=== PATIENT | female | born 1975 | race Hispanic/Latino ===

== ENCOUNTER 2017-10-10 20:48 | Emergency (ER) | payer BC ==
[2017-10-10 20:56] VITALS: PULSE 98; RESP 18
[2017-10-10] MEDS ORDERED: Sodium Chloride 0.9% 1,000 ML IV STA (21:08)
[2017-10-10] MEDS ORDERED: Morphine 4 mg/ml ISec IVP STA (21:08)
[2017-10-10 21:14] VITALS: BMI 27.4
--- NOTE | 2017-10-10 21:46 | ED PDOC ---
Arrival/HPI - General Chief Complaint: Female Genitourinary Time Seen by Provider: 10/10/17 20:53 Historian: Patient - History of Present Illness Narrative History of Present Illness (Text): 10/10/17 21:43 42yr old female presents today with worsening lower abdominal pain. pt states she is currently menstrating and through out the day today the pain has been gradually increasing. Pt states about 1 hour prior to arrival the pain became severe. pt states she took vicodin without improvement. pt denies back pain. pt states the pain is 10/10 sharp, intermittent, located to the suprapubic region and is non radiating. pt denies cp or sob. denies dysuria, or frequency. pt states she feels urinary fullness after urinating. no fever/chills. no other complaints. Past Medical History - Provider Review Nursing Documentation Reviewed: Yes - Travel History Have you recently traveled outside [place] w/in the past 3 mons?: No - Tetanus Immunization Tetanus Immunization: Unknown - Psychiatric Hx Psychophysiologic Disorder: No Hx Substance Use: No - Surgical History Hx Section: Yes - Anesthesia Hx Anesthesia: No Family/Social History - Physician Review Nursing Documentation Reviewed: Yes Family/Social History: Unknown Family HX Smoking Status: Never Smoked Hx Alcohol Use: No Hx Substance Use: No Allergies/Home Meds Allergies/Adverse Reactions: Allergies No Known Allergies Allergy (Verified 10/10/17 21:00) Review of Systems - Review of Systems Constitutional: absent: Fatigue, Fevers Respiratory: absent: SOB, Cough Cardiovascular: absent: Chest Pain, Palpitations Gastrointestinal: Abdominal Pain. absent: Constipation, Diarrhea, Nausea, Vomiting Genitourinary Female: Vaginal Bleeding (currently menstrating), Other (urinary "fullness"). absent: Dysuria, Frequency, Hematuria Skin: absent: Rash, Pruritis Neurological: absent: Headache, Dizziness Psychiatric: absent: Anxiety, Depression, Suicidal Ideation Physical Exam Vital Signs Reviewed: Yes Vital Signs Temp Pulse Resp BP Pulse Ox 10/10/17 20:55 97.8 F 98 H 18 136/71 98 Temperature: Afebrile Blood Pressure: Normal Pulse: Regular Respiratory Rate: Normal Appearance: Positive for: Well-Appearing, Non-Toxic, Uncomfortable Pain Distress: Mild Mental Status: Positive for: Alert and Oriented X 3 - Systems Exam Head: Present: Atraumatic Mouth: Present: Moist Mucous Membranes Neck: Present: Normal Range of Motion Respiratory/Chest: Present: Clear to Auscultation, Good Air Exchange. No: Respiratory Distress, Accessory Muscle Use Cardiovascular: Present: Regular Rate and Rhythm, Normal S1, S2. No: Murmurs Abdomen: Present: Tenderness (+ suprapubic tenderness), Normal Bowel Sounds. No : Distention, Peritoneal Signs, Rebound, Guarding Genitourinary/Pelvic Exam: Present: Normal External Genitalia, Vaginal Bleeding , Other (chaparoned by Khadra MILLER RN). No: Vaginal Discharge, Vaginal Lesions, Adenexal Tenderness, Adenexal Mass, Cervical Motion Tendernes, Cervical os Closed, Odor Back: Present: Normal Inspection. No: CVA Tenderness, Midline Tenderness, Paraspinal Tenderness Upper Extremity: Present: Normal ROM Lower Extremity: Present: Normal ROM Neurological: Present: GCS=15, Speech Normal Skin: Present: Warm, Dry, Normal Color. No: Rashes Psychiatric: Present: Alert, Oriented x 3 Medical Decision Making ED Course and Treatment: 10/10/17 21:49 Patient is nontoxic well appearing with stable vital signs presenting with lower abdominal pain CBC wnl CMP wnl Lipase wnl lactate; 1.7 Urinalysis + blood, + nitrates, + leukocytes, + bacteria, + [id number] Ultrasound:FINDINGS: Uterus/cervix: Unremarkable measuring 11.1 x 4.5 x 5.9 cm. Normal endometrial stripe thickness measuring 3 mm. No myometrial mass. Right ovary: The right ovary measures 3.1 x 2.3 x 3.9 cm. No mass. Normal blood flow. Left ovary: Unremarkable measuring 2.9 x 2.7 x 3.0 cm. There is a simple right ovarian cyst measuring 2.5 x 2.6 x 2.8 cm. No mass. Normal blood flow. Free fluid: No free fluid. Bladder: Empty bladder which cannot be evaluated with this probe. IMPRESSION: No ovarian torsion. Simple right ovarian cyst CAT scan: FINDINGS: Lower thorax: No acute findings. ABDOMEN: Liver: Unremarkable. No mass. Gallbladder and bile ducts: Unremarkable. No calcified stones. No ductal dilation. Pancreas: Unremarkable. No mass. No ductal dilation. Spleen: Unremarkable. No splenomegaly. Adrenals: Unremarkable. No mass. Kidneys and ureters: 1 mm nonobstructing stone in the right kidney.The left kidney is normal. Stomach and bowel: Moderately distended stomach with fluid and air. No mucosal thickening.There is no wall thickening or pericolonic stranding to suggest colitis. Appendix: No appendix is specifically identified. There is no evidence of fluid collections or inflammatory stranding in the right lower quadrant. FARZAD JAFFE | Final Radiology Report CONFIDENTIALITY STATEMENT This report is intended only for use by the referring physician, and only in accordance with law. If you received this in error, call [phone]. Page 2 of 2 PELVIS: Bladder: Unremarkable. No mass. Reproductive: 2.6 cm cyst the right ovary. ABDOMEN and PELVIS: Intraperitoneal space: Unremarkable. No free air. No significant fluid collection. Bones/joints: No acute fracture. No dislocation. Soft tissues: Unremarkable. Vasculature: There are numerous benign phleboliths in the pelvis. No abdominal aortic aneurysm. Lymph nodes: Unremarkable. No enlarged lymph nodes. IMPRESSION: Nonspecific gastric distention. No significant wall thickening. No bowel obstruction or acute colitis. Nonobstructing right renal stone. Right ovarian cyst. No followup necessary Patient reassessment:pt feeling better after morphine; vitals stable. keflex ordered for UTI; pt refused keflex; states she wants macrobid; macrobid ordered. pt reassessment; pt feeling much better after medications; states pain has not returned; denies any complaints at present time; wants to go home. Discussed all results with patient in depth. advised f/u with with PMD and gas regulator repairer within the next 2 days. advised immediate return if symptoms worsen,persist or if new symptoms develop. Patient verbalizes understanding of discharge instructions and need for immediate followup. all aspects of this case were discussed the attending of record. Impression: Abdominal pain, uti, ovarian cyst macrobid; 1 tablet twice daily x 10 days increase fluids follow up with the [employer] HELPER within the next 2 days follow up with the primary care physician within the next 2 days return immediately if symptoms worsen,persist or if new symptoms develop. - Lab Interpretations Lab Results: 10/10/17 21:30 10/10/17 21:30 Lab Results 10/10/17 22:42: Urine Color Dark red, Urine Appearance Cloudy, Urine pH 6.5, Ur Specific [place] 1.025, Urine Protein >=300 H, Urine Glucose (UA) 100 H, Urine Ketones 15 H, Urine Blood Large H, Urine Nitrate Positive H, Urine Bilirubin Negative, Urine Urobilinogen 2.0 H, Ur Leukocyte Esterase Moderate H, Urine RBC 20 - 25, Urine WBC 10 - 15, Ur Epithelial Cells 0 - 2, Urine Bacteria Mod 10/10/17 21:30: pO2 38, VBG pH 7.32, VBG pCO2 58.0, VBG HCO3 29.9 H, VBG Total CO2 31.7 H, VBG O2 Sat (Calc) 75.1 H, VBG Base Excess 2.4 H, VBG Potassium 3.7, Sodium 142.0, Chloride 110.0 H, Glucose 105, Lactate 1.7, FiO2 21.0, Venous Blood Potassium 3.7 10/10/17 21:30: Beta HCG, Quant < 2.39 10/10/17 21:30: WBC 7.8, RBC 3.73, Hgb 10.5 L, Hct 31.9 L, MCV 85.5, MCH 28.2, MCHC 32.9, RDW 16.4 H, Plt Count 234, MPV 11.1 H, Gran % 62.1, Lymph % (Auto) 23.4, Woods % (Auto) 10.1 H, Eos % (Auto) 3.9, Baso % (Auto) 0.5, Gran # 4.84, Lymph # (Auto) 1.8, [place] # (Auto) 0.8 H, Eos # (Auto) 0.3, Baso # (Auto) 0.04 10/10/17 21:30: Sodium 142, Chloride 107, Potassium 3.6, Carbon Dioxide 26, Anion Gap 13, BUN 13, Creatinine 0.6 L, Est GFR ( Amer) > 60, Est GFR ( Non-Af Amer) > 60, Random Glucose 102, Calcium 9.3, Total Bilirubin 0.3, AST 19 , ALT 27, Alkaline Phosphatase 83, Total Protein 6.8, Albumin 3.9, Globulin 2.8 , Albumin/Globulin Ratio 1.4, Lipase 109 - RAD Interpretation Radiology Orders: 10/10/17 21:07 TRANSVAGINAL [US] Stat 10/10/17 21:08 ABD & PELVIS IV CONTRAST ONLY [CT] Stat - Medication Orders Current Medication Orders: Discontinued Medications Cephalexin Monohydrate (Keflex) 500 mg PO STAT STA PRN Reason: Protocol Stop: 10/11/17 00:52 Last Admin: 10/11/17 01:09 Dose: Not Given Non-Admin Reason: Patient Refused Sodium Chloride (Sodium Chloride 0.9%) 1,000 mls @ 999 mls/hr IV .Q1H1M STA Stop: 10/10/17 22:08 Last Admin: 10/10/17 21:31 Dose: 999 mls/hr eMAR Start Stop Document 10/10/17 21:31 RG (Rec: 10/10/17 21:43 [id number] Intravenous Solution Start Date 10/10/17 Start Time 21:31 Morphine Sulfate (Morphine) 4 mg IVP STAT STA Stop: 10/10/17 21:09 Last Admin: 10/10/17 21:30 Dose: 4 mg MAR Pain Assessment Document 10/10/17 21:30 (Rec: 10/10/17 21:43 [id number] Pain Reassessment Is this a pain reassessment? Yes Location Upper or Lower Lower Description Description Sharp Pain Behavior Moaning Crying Irritability IVP Administration Document 10/10/17 21:30 (Rec: 10/10/17 21:43 [id number] Charges for Administration # of IVP Administrations 1 Re-Assess: ANDREW Pain Assessment Document 10/10/17 22:30 (Rec: 10/10/17 23:08 [id number][facility] Pain Reassessment Is this a pain reassessment? Yes Presence of Pain Presence of Pain No Nitrofurantoin Macrocrystals (Macrobid) 100 mg PO STAT STA PRN Reason: Protocol Stop: 10/11/17 01:10 Last Admin: 10/11/17 01:23 Dose: 100 mg Disposition/Present on Arrival - Present on Arrival Any Indicators Present on Arrival: No History of DVT/PE: No History of Uncontrolled Diabetes: No Urinary Catheter: No History of Decub. Ulcer: No History Surgical Site Infection Following: None - Disposition Have Diagnosis and Disposition been Completed?: Yes Diagnosis: Abdominal pain, Ovarian cyst, Urinary tract infection Disposition: HOME/ ROUTINE Disposition Time: 01:34 Patient Plan: Discharge Patient Problems: Current Active Problems Problem Status Onset Abdominal pain Acute Ovarian cyst Acute Urinary tract infection Acute Condition: GOOD Discharge Instructions (ExitCare): Urinary Tract Infection, Adult (DC), Ovarian Cysts, Acute Abdomen (Belly Pain), Adult (DC) Additional Instructions: macrobid; 1 tablet twice daily x 10 days increase fluids follow up with the [employer] HELPER within the next 2 days follow up with the primary care physician within the next 2 days return immediately if symptoms worsen,persist or if new symptoms develop. Prescriptions: Nitrofurantoin Macrocrystals [Macrobid] 100 mg PO BID #20 cap Referrals: Emeterio Zacarias, [Primary Care Provider] - Follow up with primary Justin Hernadnez MD [Medical Doctor] - Follow up with primary Jovan Elena MD [Staff Provider] - Follow up with primary Love Romeo MD [Staff Provider] - Follow up with primary Forms: [employer] ([place])
[2017-10-10 21:59] LABS: VENOUS BLOOD GAS BASE EXCESS 2.4 mmol/L (0.0-2.0); VENOUS BLOOD GAS PO2 38 mm/Hg (30-55); VENOUS BLOOD PH 7.32 (7.32-7.43)
[2017-10-10 22:06] LABS: BASO # 0.04 K/mm3 (0.0-2.0); BASO % 0.5 % (0.0-3.0); EOS # 0.3 (0.0-0.7); EOS % 3.9 % (1.5-5.0); GRAN # 4.84 (1.4-6.5); GRAN % 62.1 % (50.0-68.0); HEMOGLOBIN 10.5 g/dL (12.0-16.0); LYMPH # 1.8 (1.2-3.4); LYMPH % 23.4 % (22.0-35.0); MEAN CELL VOLUME 85.5 fl (80.0-105.0); MEAN CORPUSCULAR HEMOGLOBIN 28.2 pg (25.0-35.0); MEAN CORPUSCULAR HGB CONC 32.9 g/dl (31.0-37.0); MEAN PLATELET VOLUME 11.1 fl (7.0-11.0); MONO # 0.8 (0.1-0.6); MONO % 10.1 % (1.0-6.0); RBC 3.73 10^6/uL (3.5-6.1); RED CELL DISTRIBUTION WIDTH 16.4 % (11.5-14.5); WHITE BLOOD COUNT 7.8 10^3/ul (4.5-11.0)
[2017-10-10 22:10] LABS: ALB/GLOB RATIO 1.4 (1.1-1.8); ALBUMIN 3.9 g/dL (3.0-4.8); ALT/SGPT 27 U/L (7-56); AST/SGOT 19 U/L (14-36); BLOOD UREA NITROGEN 13 mg/dL (7-21); CALCIUM 9.3 mg/dL (8.4-10.5); GFR AFRICAN-AMERICAN > 60; GFR NON-AFRICAN AMERICAN > 60; LIPASE 109 U/L (23-300)
[2017-10-10] MEDS ORDERED: Iohexol 350 MG/100 ML VIAL ONE (22:27)
[2017-10-10 23:19] LABS: PH,URINE 6.5 (4.7-8.0); URINE BILIRUBIN NEGATIVE (NEGATIVE); URINE BLOOD LARGE (NEGATIVE); URINE GLUCOSE (UA) 100 mg/dL (NEGATIVE); URINE LEUKOCYTE ESTERASE MODERATE Leu/uL (NEGATIVE); URINE PROTEIN >=300 mg/dL (<30 mg/dL)
--- NOTE | 2017-10-10 23:26 | CT ---
EXAM: CT Abdomen and Pelvis With Intravenous Contrast CLINICAL HISTORY: 42 years old, female; Pain; Abdominal pain; Prior surgery; Surgery date: 6+ months; Patient HX: Lower abdominal pain TECHNIQUE: Axial computed tomography images of the abdomen and pelvis with intravenous contrast. All CT scans at this facility use one or more dose reduction techniques, viz.: automated exposure control; ma/kV adjustment per patient size (including targeted exams where dose is matched to indication; i.e. head); or iterative reconstruction technique. Coronal and sagittal reformatted images were created and reviewed. CONTRAST: 96 mL of OMNIPAQUE 3500 administered intravenously. COMPARISON: No relevant prior studies available. FINDINGS: Lower thorax: No acute findings. ABDOMEN: Liver: Unremarkable. No mass. Gallbladder and bile ducts: Unremarkable. No calcified stones. No ductal dilation. Pancreas: Unremarkable. No mass. No ductal dilation. Spleen: Unremarkable. No splenomegaly. Adrenals: Unremarkable. No mass. Kidneys and ureters: 1 mm nonobstructing stone in the right kidney.The left kidney is normal. Stomach and bowel: Moderately distended stomach with fluid and air. No mucosal thickening.There is no wall thickening or pericolonic stranding to suggest colitis. Appendix: No appendix is specifically identified. There is no evidence of fluid collections or inflammatory stranding in the right lower quadrant. PELVIS: Bladder: Unremarkable. No mass. Reproductive: 2.6 cm cyst the right ovary. ABDOMEN and PELVIS: Intraperitoneal space: Unremarkable. No free air. No significant fluid collection. Bones/joints: No acute fracture. No dislocation. Soft tissues: Unremarkable. Vasculature: There are numerous benign phleboliths in the pelvis. No abdominal aortic aneurysm. Lymph nodes: Unremarkable. No enlarged lymph nodes. IMPRESSION: Nonspecific gastric distention. No significant wall thickening. No bowel obstruction or acute colitis. Nonobstructing right renal stone. Right ovarian cyst. No followup necessary.
[2017-10-10 23:32] LABS: URINE APPEARANCE CLOUDY (CLEAR); URINE COLOR DARK RED (YELLOW)
[2017-10-10 23:37] LABS: URINE EPITHELIAL CELLS 0 - 2 /hpf (0-5); URINE RBC 20 - 25 /hpf (0-2)
--- NOTE | 2017-10-10 23:37 | US ---
EXAM: US Pelvis, Transvaginal CLINICAL HISTORY: 42 years old, female; Pain; Pelvic pain TECHNIQUE: Real-time transvaginal pelvic ultrasound (complete) with image documentation. Transvaginal imaging was used for better evaluation of the endometrium and adnexa. COMPARISON: CT - ABD PELVIS IV CONTRAST ONLY 2017-10-10 22:42 FINDINGS: Uterus/cervix: Unremarkable measuring 11.1 x 4.5 x 5.9 cm. Normal endometrial stripe thickness measuring 3 mm. No myometrial mass. Right ovary: The right ovary measures 3.1 x 2.3 x 3.9 cm. No mass. Normal blood flow. Left ovary: Unremarkable measuring 2.9 x 2.7 x 3.0 cm. There is a simple right ovarian cyst measuring 2.5 x 2.6 x 2.8 cm. No mass. Normal blood flow. Free fluid: No free fluid. Bladder: Empty bladder which cannot be evaluated with this probe. IMPRESSION: No ovarian torsion. Simple right ovarian cyst.
[2017-10-10 23:38] LABS: URINE BACTERIA MOD (NEG)
[2017-10-11 02:59] VITALS: BP 102/66; O2SAT 100
[2017-10-11 03:00] VITALS: TEMP 97.7
== END 2017-10-11 02:00 | disposition home or self-care (01) ==
LOC: ED 20:48
DX: N39.0 Urinary tract infection, site not specified (principal); N83.201 Unspecified ovarian cyst, right side; R10.30 Lower abdominal pain, unspecified
CPT/HCPCS: 74177; 76830; 80053; 81001; 82803; 83690; 84702; 85025; 87086; 96374; 99285; J2270; J7040; Q9967